=== PATIENT | female | born 1930 | race Two or more races ===

== ENCOUNTER 2017-12-07 15:48 | Emergency (ER) | payer OTHER ==
[~2017-12-07] VITALS: Ht 157.5 cm; Wt 83.9 kg
[~2017-12-07 15:48] MED LIST: ASA81 MG PO; BIOTIN 1000 MG; CALCIO; HYZAAR 50-12.1 UDTAB PO; OMEGA 3 FISH OI1 CAP PO; PLAVIX75 MG; PRILOSEC; VIT B; [UNRECOGNIZED DRUG - OTHER]
[2017-12-07] MEDS ORDERED: PEPCID AC20 MG PO (20:57)
[2017-12-07] MEDS ORDERED: LEVSIN/SL0.125 MG PO (20:57)
== END 2017-12-07 22:30 | disposition home or self-care (01) ==
LOC: ER 15:48
DX: K29.60 Other gastritis without bleeding (principal)

== ENCOUNTER 2018-11-15 12:52 | Emergency (ER) | payer OTHER ==
[~2018-11-15] VITALS: Ht 149.9 cm; Wt 67.1 kg
[~2018-11-15 12:52] MED LIST changes: +LEVSIN/SL0.125 MG PO; +PEPCID AC20 MG PO
[2018-11-15] MEDS ORDERED: PROZAC20 MG (13:21)
[2018-11-15] MEDS ORDERED: TESSALON PERLE100 M1 PO (15:36)
[2018-11-15] MEDS ORDERED: ZITHROMAX TRI-500 MG PO (15:36)
== END 2018-11-15 16:05 | disposition home or self-care (01) ==
LOC: ER 12:52
DX: R05 Cough (principal)

== ENCOUNTER 2019-05-16 09:45 | Emergency (ER) | payer OTHER ==
[~2019-05-16] VITALS: Ht 149.9 cm; Wt 69.9 kg
[~2019-05-16 09:45] MED LIST changes: +PROZAC20 MG; +TESSALON PERLE100 M1 PO; +ZITHROMAX TRI-500 MG PO
[2019-05-16] MEDS ORDERED: PRILOSEC OTC20 MG (10:22)
[2019-05-16] MEDS ORDERED: BIOTIN10 MG (10:23)
[2019-05-16] MEDS ORDERED: B COMPLEX1 EACH (10:23)
== END 2019-05-16 18:04 | disposition home or self-care (01) ==
LOC: ER 09:45
DX: K29.60 Other gastritis without bleeding (principal); B34.9 Viral infection, unspecified